=== PATIENT | male | born 1960 | race Caucasian/White ===

== ENCOUNTER 2017-08-09 06:33 | Day surgery (SDC) | payer BC ==
[~2017-08-09] VITALS: Ht 182.9 cm; Wt 88.3 kg
[2017-08-09 06:56] VITALS: BP 152/102; PULSE 79; TEMP 97.6
[2017-08-09] MEDS ORDERED: ZESTRIL 10MG10 MG PO (07:01)
[2017-08-09] MEDS ORDERED: ASPIRIN 81M81 MG/TA2 PO (07:02)
[2017-08-09] MEDS ORDERED: NORCO 325 MG-51 TAB PO (09:33)
[2017-08-09 10:20] VITALS: BP 111/78; PULSE 76; TEMP 97
[2017-08-09 10:35] VITALS: BP 113/72; PULSE 72
[2017-08-09 10:45] VITALS: TEMP 98.4
[2017-08-09 10:50] VITALS: BP 99/69; PULSE 75
[2017-08-09 11:08] VITALS: BP 110/72; PULSE 70
== END 2017-08-09 11:55 | disposition home or self-care (01) ==
LOC: SDCO 06:33
DX: K80.10 Calculus of gallbladder with chronic cholecystitis without obstruction (principal); I10 Essential (primary) hypertension; F17.210 Nicotine dependence, cigarettes, uncomplicated; Z68.25 Body mass index [BMI] 25.0-25.9, adult; Z80.9 Family history of malignant neoplasm, unspecified
CPT/HCPCS: J0690; J1100; J1885; J2250; J2405; J2704; J2710; J3010; J7120